=== PATIENT | female | born 1945 | race Caucasian/White ===

== ENCOUNTER 2017-08-24 02:35 | Inpatient (IN) | payer MEDICARE ==
[2017-08-24] VITALS (14 sets, daily range): BP systolic 116–187; BP diastolic 49–92; BMI 21.6
[2017-08-24 04:01] LABS: BASOPHILS 0.1 % (0-2); HEMATOCRIT 36.4 % (36.0-48.0); HEMOGLOBIN 11.9 g/dL (12-16); IMMATURE GRANULOCYTES 0.3 % (0-5); MCH 29.1 pg (26.0-34.0); MCHC 32.7 g/dL (31.0-37.0); MONOCYTES 5.4 % (2-11); NEUTROPHILS 77.2 % (40-80); PLATELET COUNT 227 10x3/uL (130-400); RBC 4.09 10x6/uL (4.00-5.40); RDW 14.1 % (11.5-14.5)
[2017-08-24 04:16] LABS: ALBUMIN 3.5 g/dL (3.4-5.0); ANION GAP 8.4 mmol/L (8-16); BILIRUBIN - TOTAL 0.16 mg/dL (0.2-1.3); CALCIUM 9.1 mg/dL (8.5-10.1); CARBON DIOXIDE 32.2 mmol/L (21.0-32.0); CREATININE - SERUM 0.8 mg/dL (0.6-1.3); POTASSIUM - SERUM 3.6 mmol/L (3.5-5.1); PROTEIN - SERUM 6.3 g/dL (6.4-8.2)
[2017-08-24 04:29] LABS: APPEARANCE CLEAR (CLEAR); BILIRUBIN NEGATIVE (NEGATIVE); COLOR YELLOW (YELLOW); GLUCOSE NEGATIVE (NEGATIVE); KETONE NEGATIVE (NEGATIVE); NITRITE NEGATIVE (NEGATIVE); PROTEIN NEGATIVE (NEGATIVE); SPECIFIC GRAVITY 1.015 (1.005-1.020); UROBILINOGEN NORMAL (NORMAL)
[2017-08-24 04:32] LABS: PRO BNP 404 pg/mL (0-125)
[2017-08-24 04:36] LABS: TROPONIN-I < 0.017 ng/mL (0.000-0.060)
--- NOTE | 2017-08-24 08:00 | NUR ---
RECIEVED PT FROM FORENSIC ENGINEER NURSE. PT RESTING IN BED WITH COMPLAINTS OF PAIN OF A 6 ON A SCALE OF 1-10. NO MEDICATION TO BE GIVEN AT THIS TIME. ASSESSMENT DONE PER FLOWSHEET. BED IN LOW POSITION AND CALL LIGHT WITHIN REACH. WILL CONTINUE TO MONITOR.
[2017-08-24 10:26] LABS: APTT 34.4 SECONDS (22.8-39.4); INR 0.99 (0.85-1.17); PROTIME 12.9 SECONDS (11.6-15.0)
--- NOTE | 2017-08-24 16:35 | NUR ---
UPON ARRIVAL TO PACU, O2 WITH SIMPLE FACE MASK ON 10 L NEVER ADALI ABOVE 95. AT 5L REMAINED AT 91. SWITCHED TO OXYMIZER AT 7 L. UNTIL PATIENT AWAKES MORE.
--- NOTE | 2017-08-24 17:37 | OP ---
PATIENT NAME: SEAN CURTIS MEDICAL RECORD: [id number] :45 LOCATION:[id number] ADMISSION DATE:08/24/17 SURGEON: MAICO KEBEDE DO DATE OF OPERATION: 08/24/2017 PROCEDURE PERFORMED: Right hip intramedullary nailing. PREOPERATIVE DIAGNOSIS: Right hip intertrochanteric fracture. POSTOPERATIVE DIAGNOSIS: Right hip intertrochanteric fracture. INDICATIONS: Ms. Curtis is a 72-year-old female, who fell off a third step yesterday evening while out with her friends and she was brought to the hospital. X-rays were taken and seemed to have a right hip fracture. She is admitted to medicine and I was consulted to see her. I saw her this morning and I explained to her the risks and benefits of procedure and that she would benefit from having this procedure done. She agreed to it verbally and then consented, signed the consent later. SURGEON: Maico Kebede DO COMPLICATIONS: None. ESTIMATED BLOOD LOSS: 100 mL. DESCRIPTION OF PROCEDURE: The patient was taken to the operative suite and laid in the supine position. Given general anesthetic, intubated and moved over to the fracture table. She was then put on the fracture table. Once this was done, the fracture was reduced and confirmed on C-arm. The timeout was performed and everyone was in agreeance to the correct side, site and patient and the correct procedure. After that, the right leg was prepped and draped in sterile fashion. The procedure then commenced and incision was made just over the greater trochanter and proximal to it, and then careful dissection was made down to the greater trochanter. The starting point with pin was obtained via x-ray on AP and lateral confirmed. The starting pin was driven down to the medullary canal. Once this was done, the opening reamer was used to open the greater trochanter starting point at the proximal femur and into the canal. The guidewire was then placed down the femur and a measurement was taken and it was seen to be 380 mm in length. Reaming then commenced starting with a 9 up to 12.5 in order to get a 11 nail down. The nail was then inserted. Once this was done, the lag screw pin, guidepin was inserted into the proper position, confirmed on x-ray AP and lateral, and then the drill was used over the guidepin after it was measured to be 90. Once this was done, before the lag screw was manually entered, the derotational screw was put in. A drill bit was put in and left into place while the lag screw was manually put into place. Once this was done, traction was taken off and the antirotational drill bit was taken out and compressed them again; compressed the glass production machine operator and compressed the fracture site. Following this, the antirotational screw was placed; a 70 mm antirotation screw was placed. The locking mechanism was then locked on the nail from the top of the nail and the jig was removed. X-rays were taken confirming good position. A distal locking screw was then placed using perfect cantwell technique. A single one was placed in the distal femur. After this was done, x-rays were done on the AP and lateral, confirming good placement of the nail and fracture reduction was adequate. Lateral was taken of the hip, seeing good position of the hardware. Following this, the wounds were irrigated thoroughly. OPERATIVE REPORT [id number] SEAN CURTIS The IT band was closed at the proximal incision with a #1 Vicryl. Then the skin was closed with 2-0 inverted interrupted stitches at the proximal incision as well as where the lag screw was entered and at the distal screw hole. Then, Prineo Dermabond was placed on the incision sites, and Telfa and Tegaderm were placed over them. The patient was then awakened and taken to recovery in stable condition. TRANSINT:[id number] Voice Confirmation ID: [id number] DOCUMENT ID: [id number] MAICO KEBEDE DO at 1737 CC: [id number] DICTATION DATE: 08/24/17 1611 HEALTH PROMOTION SPECIALIST: 08/24/17 1645 ADM IN [facility] [address] [place] [address]
--- NOTE | 2017-08-24 19:15 | NUR ---
RECEIVED CARE FROM DAY NURSE. PT LYING IN BED WITH EYES CLOSED. RESP EVEN AND UNLABORED. CALL LIGHT AT SIDE. CONT. VITALS IN PLACE. JC TO GRAVITY. ICE TO RIGHT HIP. DRESSING CDI.
--- NOTE | 2017-08-24 20:57 | NUR ---
NORCO 10 GIVEN FOR PAIN LEVEL 9. REPORTS NO OTHER NEEDS AT THIS TIME. CALL LIGHT AT SIDE. IV INFUSING TO RIGHT AC NS @ 30 TO MAINTAIN PATENCY.
--- NOTE | 2017-08-25 03:39 | NUR ---
PATIENT RESTING IN BED WITH ALEXI ABRAHAM AT BEDSIDE. NO VISIBLE SIGNS OF DISTRESS. BED IN LOWEST POSITION AND CALL LIGHT WITHIN REACH.
--- NOTE | 2017-08-25 03:46 | NUR ---
PT AWOKE AND REPORTS PAIN. PAIN MEDS GIVEN AT 0219. TOLD PT IN 20 MINUTES I COULD GIVE HER STRONGER MEDICATION IF SHE STILL NEEDED IT AT THAT TIME. NO OTHER NEEDS VOICED AT THIS TIME. GINNY MAT IN PLACE. SCD'S ARE ON AND WORKING. OXIMIZER AT 3.5L. PER RT WE WILL NOT TRY TO WEAN OFF O2 AT THIS TIME DUE TO PT SEDATION THROUGOUT MOST OF SHIFT.
[2017-08-25 05:19] LABS: BASOPHILS 0.2 % (0-2); EOSINOPHILS 1.2 % (0-7); HEMATOCRIT 35.7 % (36.0-48.0); HEMOGLOBIN 11.5 g/dL (12-16); IMMATURE GRANULOCYTES 0.2 % (0-5); MCH 28.8 pg (26.0-34.0); MCHC 32.2 g/dL (31.0-37.0); MCV 89.3 fL (80.0-100.0); MEAN PLATELET VOLUME 10.4 fL (7.4-10.4); MONOCYTES 7.7 % (2-11); NEUTROPHILS 77.7 % (40-80); PLATELET COUNT 233 10x3/uL (130-400); RDW 14.4 % (11.5-14.5); WBC 9.1 10x3/uL (4.8-10.8)
[2017-08-25 05:41] LABS: ALBUMIN 3.1 g/dL (3.4-5.0); ALKALINE PHOSPHATASE 90 U/L (46-116); ALT (SGPT) 22 U/L (10-68); CALC OSMOLALITY 277 mosm/kg (275-300); CALCIUM 8.4 mg/dL (8.5-10.1); CARBON DIOXIDE 27.5 mmol/L (21.0-32.0); CHLORIDE - SERUM 103 mmol/L (98-107); CREATININE - SERUM 0.7 mg/dL (0.6-1.3); GLUCOSE 103 mg/dL (74-106); POTASSIUM - SERUM 3.9 mmol/L (3.5-5.1); PROTEIN - SERUM 6.1 g/dL (6.4-8.2); SODIUM 139 mmol/L (136-145); UREA NITROGEN 12 mg/dL (7-18); eGFR NON AFRICAN AMERICAN 87 mL/min (90-120)
--- NOTE | 2017-08-25 07:30 | NUR ---
RECIEVED PT DURING WALKING ROUNDS. PT RESTING IN BED WITH COMPLAINTS OF PAIN OF A 8 ON A SCALE OF 1-10. MEDICATION TO BE GIVEN PER ORDER. ASSESSMENT DONE PER FLOWSHEET. BED IN LOW POSITION AND CALL LIGHT WITHIN REACH. WILL CONTINUE TO MONITOR.
[2017-08-25 09:33] VITALS: BP 135/66
[2017-08-25 12:09] VITALS: BP 103/71
--- NOTE | 2017-08-25 19:15 | NUR ---
RECEIVED CARE FROM DAY NURSE. PT IN BED LOOKING AT PHONE. REPORTS NO NEEDS AT THIS TIME. CALL LIGHT AT SIDE. GINNY WANG ARMED. JC TO GRAVITY.
[2017-08-25 20:00] VITALS: BP 171/68
[2017-08-26] VITALS (7 sets, daily range): BP systolic 112–182; BP diastolic 62–71
--- NOTE | 2017-08-26 02:34 | NUR ---
RESTING QUITLY WITH EYES CLOSED. RESP EVEN AND UNLABORED. CALL LIGHT AT SIDE. GINNY MAT IN PLACE. JC TO GRAVITY. IV IN R AC SL.
--- NOTE | 2017-08-26 02:53 | NUR ---
REPORTS PAIN LEVEL 8. NORCO 10 GIVEN PER ORDER. PT REPORTS HAS BURNING TONGUE AND LIP SYNDROM AND IS EXPERIANCING MOUTH DISCOMFORT WELL. NO OTHER NEEDS VOICED AT THIS TIME. CALL LIGHT AT SIDE. GINNY BED ARMED.
[2017-08-26 05:47] LABS: HEMATOCRIT 34.2 % (36.0-48.0); HEMOGLOBIN 11.2 g/dL (12-16); MCH 28.7 pg (26.0-34.0); MCHC 32.7 g/dL (31.0-37.0); MCV 87.7 fL (80.0-100.0); MEAN PLATELET VOLUME 10.3 fL (7.4-10.4); RBC 3.9 10x6/uL (4.00-5.40); RDW 13.9 % (11.5-14.5); WBC 8.3 10x3/uL (4.8-10.8)
--- NOTE | 2017-08-26 07:52 | NUR ---
AWAKE AND ALERAT. ORIENTED X3. NO C/O AT THIS TIME. LUNGS ARE CLEAR BILATERALLY, NO COUGH NOTED. SKIN IS INTACT WITHOUT REDENSS EXCEPT INCISION TO RIGHT HIP WHICH HAS A DRY INTACT DRESSING IN PLACE. IV TO RIGHT AC IS PATNET IWTHOUT REDNESS AT INSERTION SITE. DENIES NEEDS.
--- NOTE | 2017-08-26 09:10 | NUR ---
REQUESTED AND GIVEN ONE HYDROCODONE PO FOR PAIN MANAGEMENT PRIOR TO THERAPY. WILL MONITOR.
[2017-08-26 09:59] LABS: ALBUMIN 3.1 g/dL (3.4-5.0); ALKALINE PHOSPHATASE 103 U/L (46-116); ALT (SGPT) 23 U/L (10-68); BILIRUBIN - TOTAL 0.59 mg/dL (0.2-1.3); CALC OSMOLALITY 272 mosm/kg (275-300); CALCIUM 8.6 mg/dL (8.5-10.1); CARBON DIOXIDE 26.4 mmol/L (21.0-32.0); CHLORIDE - SERUM 101 mmol/L (98-107); CREATININE - SERUM 0.6 mg/dL (0.6-1.3); GLUCOSE 111 mg/dL (74-106); POTASSIUM - SERUM 3.6 mmol/L (3.5-5.1); SODIUM 137 mmol/L (136-145); UREA NITROGEN 8 mg/dL (7-18); eGFR NON AFRICAN AMERICAN > 90 mL/min (90-120)
--- NOTE | 2017-08-26 10:30 | NUR ---
UP IN CHAIR AT BEDSIDE PER PT. NO C/O AT THIS TIME.
[2017-08-26] MEDS ORDERED: KLONOPIN1 MG PO (10:49)
[2017-08-26] MEDS ORDERED: XANAX2 MG PO (10:50)
[2017-08-26] MEDS ORDERED: CELEXA40 MG PO (10:51)
[2017-08-26] MEDS ORDERED: ELAVIL25 MG PO (10:51)
[2017-08-26] MEDS ORDERED: FLOMAX0.4 MG PO (10:52)
[2017-08-26] MEDS ORDERED: CIPRO500 MG PO (10:53)
[2017-08-26] MEDS ORDERED: VITAMIN D250000 UNIT PO (10:53)
[2017-08-26] MEDS ORDERED: HYDRALAZINE HCL50 MG PO (10:54)
[2017-08-26] MEDS ORDERED: ULTRAM50 MG PO (10:54)
[2017-08-26] MEDS ORDERED: SOMA350 MG PO (10:55)
[2017-08-26] MEDS ORDERED: NAPROSYN500 MG PO (10:56)
[2017-08-26] MEDS ORDERED: DOXYCYCLINE HY100 M2 PO (10:56)
[2017-08-26] MEDS ORDERED: FLUTICASONE PRO16 GM NASAL (10:57)
[2017-08-26] MEDS ORDERED: MEDROL DOSE PACK4 MG PO (10:57)
[2017-08-26] MEDS ORDERED: COREG12.5 MG PO (10:57)
[2017-08-26] MEDS ORDERED: TOBRADEX EYE DRO5 ML EACH EYE (10:58)
--- NOTE | 2017-08-26 11:00 | NUR ---
ASSISTED TO BSC MAX X2. WILL MONITOR.
--- NOTE | 2017-08-26 11:30 | NUR ---
ASSISTED BACK TO CHAIR MAX X1. NO BM AT THIS TIME.
--- NOTE | 2017-08-26 12:15 | NUR ---
LUNCH SERVED IN ROOM. FEEDS SELF BUT ATE POORLY. WILL MONITOR.
--- NOTE | 2017-08-26 13:15 | NUR ---
BACK TO BED PER PT. NO C/O AT THIS TIME.
--- NOTE | 2017-08-26 18:30 | NUR ---
REFUSED TO EAT ANY SUPPER. REFUSED OFFER OF ALTERNATIVE FOOD. FEELS MUCH BETTER AFTER HAVING A VERY LARGE STOOL. NO CHANGES NOTED. DENIES NEEDS.
--- NOTE | 2017-08-27 00:02 | NUR ---
1945)REC'D. PATIENT IN BED.AAO X3 AT PRESENT TIME.DRSG. DRY AND INTACT.RIGHT HIP.MINIMAL SWELLING OBSERVED RIGHT THIGH.ICE IN PLACE.FOOT PINK/WARM PEDAL PULSE PRESENT. WIGGLES TOES AND DORSIFLEXES.DENIES NUMBNESS,CALF PAIN OR TENDERNESS. BED ARMED. WILL CONTINUE TO MONITOR FOR ANY CHGES.NEUROVASCULAR STATUS AND FOLLOW CURRENT PLAN OF CARE.JC PATENT AND DRAINING HONORIO COLORED URINE
[2017-08-27 04:00] VITALS: BP 144/59
[2017-08-27 06:35] LABS: BASOPHILS 0.1 % (0-2); EOSINOPHILS 1.3 % (0-7); HEMATOCRIT 32.7 % (36.0-48.0); HEMOGLOBIN 10.9 g/dL (12-16); IMMATURE GRANULOCYTES 0.1 % (0-5); LYMPHOCYTES 17.5 % (15-50); MCH 28.6 pg (26.0-34.0); MCHC 33.3 g/dL (31.0-37.0); MCV 85.8 fL (80.0-100.0); MEAN PLATELET VOLUME 10.5 fL (7.4-10.4); MONOCYTES 8.5 % (2-11); NEUTROPHILS 72.5 % (40-80); PLATELET COUNT 189 10x3/uL (130-400); RBC 3.81 10x6/uL (4.00-5.40); RDW 13.8 % (11.5-14.5); WBC 7.7 10x3/uL (4.8-10.8)
[2017-08-27 06:52] LABS: ALBUMIN 2.9 g/dL (3.4-5.0); ALKALINE PHOSPHATASE 103 U/L (46-116); ALT (SGPT) 23 U/L (10-68); BILIRUBIN - TOTAL 0.65 mg/dL (0.2-1.3); CALC OSMOLALITY 278 mosm/kg (275-300); CALCIUM 8.7 mg/dL (8.5-10.1); CARBON DIOXIDE 24.9 mmol/L (21.0-32.0); CHLORIDE - SERUM 102 mmol/L (98-107); CREATININE - SERUM 0.5 mg/dL (0.6-1.3); GLUCOSE 96 mg/dL (74-106); POTASSIUM - SERUM 3.5 mmol/L (3.5-5.1); PROTEIN - SERUM 6.5 g/dL (6.4-8.2); SODIUM 139 mmol/L (136-145); eGFR NON AFRICAN AMERICAN > 90 mL/min (90-120)
[2017-08-27 07:00] LABS: UREA NITROGEN 14 mg/dL (7-18)
--- NOTE | 2017-08-27 08:09 | NUR ---
AWAKE AND ALERT. ORIENTED X3. LUNGS ARE CLEAR BILATERALLY, NO COUGH NOTED. SKIN IS INTACT WITHOUT REDNESS EXCEPT INCISIONS TO RIGHT HIP WHICH HAVE DRY INTACT DRESSINGS IN PLACE. SL TO RIGHT AC SORE. D/C WITH CATHETER INTACT. SCD'S IN PLACE. DENIES NEEDS.
[2017-08-27 08:25] VITALS: BP 149/59
--- NOTE | 2017-08-27 08:40 | NUR ---
GIVEN ONE HYDROCODONE PO FOR PAIN MANAGEMENT PRIOR TO THERAPY. WILL MONITOR.
--- NOTE | 2017-08-27 10:30 | NUR ---
UNABLE TO VOID STILL. BRIGHT RED BLOOD CONTINUES TO DRIBBLE FROM PENIS. BLADDER SCAN SHOWED 405cc. 16F JC PLACED USING STERILE TECHNIQUE. ALL CONTENTS OF KIT UTILIZED EXCEPT COLLECTION CONTAINER. PATIENT TOLERATED WITHOUT C/O INCREASED PAIN. IMMEDIATE RETURN OF LARGE CLOT AND BLOODY URINE. DR. KEBEDE NOTIFIED OF SAME. NO NEW ORDERS AT THIS TIME. JC WAS IRRIGATED WITH 50 CC STERILE SALINE AND PRESSURE APPLIED WITH STAT LOCK.
--- NOTE | 2017-08-27 10:48 | NUR ---
Patient Name: SEAN CURTIS Admission Status: ER Accout number: [id number] Admission Date: 08-24-2017 : 1945 Admission Diagnosis: Attending: MAICO CURRY Current LOS: 3 Anticipated DC Date: Planned Disposition: Inpatient Rehab Primary Insurance: MEDICARE A & B Discharge Planning Comments: CM met with patient to assess discharge planning needs. Patient lives independently in [place]. Patient states that she has a cane at home and lives independently at home. She would like to go to [facility] in [place] for rehab. She has friends that live close to there who can bring her stuff if she needs it. She does not have any stairs or steps in her home. CM will continue to assist with discharge planning needs PCP: Jeromy Cormier -[facility] Strategic Partnership Specialist: Liliana Mario * Is the patient Alert and Oriented? Yes 0 * How many steps to enter\exit or inside your home? 0 0 * PCP Jeromy Cormier in [facility] * [facility] * Preadmission Environment Home Alone 0 * ADLs Independent 0 * Equipment Cane 0 * Community resources currently utilized None 0 * Additional services required to return to the preadmission environment? Yes 0 * Can the patient safely return to the preadmission environment? Yes 0 * Has this patient been hospitalized within the prior 30 days at any hospital? No 0 Grand Total: 0
[2017-08-27 11:53] VITALS: BP 99/40
--- NOTE | 2017-08-27 12:26 | NUR ---
NUTRITION F/U CHART REVIEWED. REGULAR DIET. POOR INTAKE MOST MEALS. 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 DOES NOT LIKE ENSURE. STATES SHE WILL TRY TO EAT MORE AT LUNCH TODAY. RD FOLLOWING
--- NOTE | 2017-08-27 12:36 | NUR ---
LUNCH SERVED IN ROOM. ASSISTED UP TO SIDE OF BED PER STAFF. NO C/O AT THIS TIME.
--- NOTE | 2017-08-27 14:25 | NUR ---
REFERRAL SENT TO [facility] AND SPOKE WITH BELINDA. REFERRAL FAXED TO [phone]. AWAITING TO HEAR BACK FOR APPROVAL.
[2017-08-27] MEDS ORDERED: ULTRAM50 MG PO (14:34)
[2017-08-27] MEDS ORDERED: ELIQUIS2.5 MG PO (14:34)
[2017-08-27 15:45] VITALS: BP 112/46
--- NOTE | 2017-08-27 17:30 | NUR ---
ATE MOST OF SUPPER. DENIES NEEDS. NO CHANGES NOTED AT THIS TIME.
[2017-08-27 20:00] VITALS: BP 147/57
[2017-08-28] VITALS: BP 140/57
--- NOTE | 2017-08-28 02:21 | NUR ---
1930)REC'D. IN BED AAO X3.BED ARMED FOR SAFETY.DRSG. DRY AND INTACT RT. HIP.FOOT PINK AND WARM PEDAL PULSE PRESENT WIGGLE TOES AND DORSIFLEXES/DENIES CALF PAIN OR TENDERNESS.WILL CONTINUE TO MONITOR FOR ANY CHGES. INNEUROVASCULAR STATUS AND FOLLOW CURRENT PLAN OF CARE
[2017-08-28 05:20] LABS: BASOPHILS 0.1 % (0-2); EOSINOPHILS 1.6 % (0-7); HEMATOCRIT 33.8 % (36.0-48.0); IMMATURE GRANULOCYTES 0.3 % (0-5); LYMPHOCYTES 16.4 % (15-50); MCH 28.6 pg (26.0-34.0); MCHC 32.5 g/dL (31.0-37.0); MEAN PLATELET VOLUME 10.2 fL (7.4-10.4); MONOCYTES 9.5 % (2-11); NEUTROPHILS 72.1 % (40-80); PLATELET COUNT 236 10x3/uL (130-400); RBC 3.84 10x6/uL (4.00-5.40); RDW 14.1 % (11.5-14.5)
[2017-08-28 05:39] LABS: ALBUMIN 2.9 g/dL (3.4-5.0); ALKALINE PHOSPHATASE 97 U/L (46-116); ALT (SGPT) 22 U/L (10-68); BILIRUBIN - TOTAL 0.63 mg/dL (0.2-1.3); CALC OSMOLALITY 277 mosm/kg (275-300); CALCIUM 8.7 mg/dL (8.5-10.1); CARBON DIOXIDE 25.3 mmol/L (21.0-32.0); CHLORIDE - SERUM 103 mmol/L (98-107); CREATININE - SERUM 0.6 mg/dL (0.6-1.3); GLUCOSE 100 mg/dL (74-106); POTASSIUM - SERUM 3.6 mmol/L (3.5-5.1); PROTEIN - SERUM 6.6 g/dL (6.4-8.2); SODIUM 138 mmol/L (136-145); UREA NITROGEN 17 mg/dL (7-18); eGFR NON AFRICAN AMERICAN > 90 mL/min (90-120)
--- NOTE | 2017-08-28 07:40 | NUR ---
ASSISTED PT BACK TO BED FROM BEDSIDE COMMODE. HAD MEDIUM, FORMED BROWN BOWEL MOVEMENT. DENIES NEEDS AT THIS TIME. CALL LIGHT IN REACH, GINNY ALARM ON AND IN WORKING ORDER. WILL CONTINUE WITH PLAN OF CARE.
[2017-08-28 08:37] VITALS: BP 141/57
--- NOTE | 2017-08-28 09:38 | NUR ---
SCHEDULED MEDICATIONS ADMINISTERED AT THIS TIME. APRESOLINE HELD DUE TO DIASTOLIC PRESSURE OF 57. TAKEN WITHOUT DIFFICULTY. DENIES NEEDS AT PRESENT TIME. JC CATHETER PATENT AND DRAINING TO GRAVITY. GINNY ALARM IN USE FOR FALL PRECAUTIONS. CALL LIGHT IN REACH, WILL CONTINUE WITH PLAN OF CARE.
--- NOTE | 2017-08-28 10:53 | NUR ---
JC CATHETER D/C WITH CATH TIP INTACT. PT TOLERATED WITH MINIMAL COMPLAINTS OF DISCOMFORT. GINNY ALARM ON AND IN USE WITH CALL LIGHT IN REACH. WILL CONTINUE WITH PLAN OF CARE.
[2017-08-28 12:11] VITALS: BP 120/57
--- NOTE | 2017-08-28 13:33 | NUR ---
PRN ULTRAM ADMINISTERED AT THIS TIME FOR PAIN 8/10 INCISIONALLY.
--- NOTE | 2017-08-28 14:30 | NUR ---
DRESSINGS X3 TO RIGHT LEG/HIP CHANGED PER ORDERS. ICE APPLIED TO INCISIONAL SITES. FLU SHOT ADMINISTERED IN RIGHT DELTOID. DENIES FURTHER NEEDS. WILL CONTINUE WITH PLAN OF CARE.
--- NOTE | 2017-08-28 14:31 | NUR ---
CM REASSESSMENT NOTE: PATIENT IS DISCHARGING TO [facility] TODAY TO A SKILLED BED/ FRIEND DRIVING/ IMM/ NO OTHER NEEDS.
--- NOTE | 2017-08-28 16:09 | NUR ---
REPORT CALLED TO SOPHY CHAVEZ AT [facility], .
--- NOTE | 2017-08-28 17:00 | NUR ---
DISCHARGE PAPERWORK REVIEWED WITH PT. DENIES QUESTIONS OR CONCERNS.
--- NOTE | 2017-08-28 17:11 | NUR ---
DISCHARGED TO [facility] AT THIS TIME.
== END 2017-08-28 17:12 | DRG 482 ==
LOC: D.ER 02:35 → D.MS 04:13
PROVIDERS: Anesthesiology; Family Medicine; Orthopaedic Surgery; ADMIT Family Medicine
PROC: 0QH636Z Insertion of Intramedullary Internal Fixation Device into Right Upper Femur, Percutaneous Approach (ICD-10-PCS; principal; 2017-08-24 14:06)
DX: S72.141A Displaced intertrochanteric fracture of right femur, initial encounter for closed fracture (principal); W19.XXXA Unspecified fall, initial encounter; I48.91 Unspecified atrial fibrillation